=== PATIENT | male | born 1975 | race Caucasian/White ===

== ENCOUNTER 2017-10-04 01:39 | Emergency (ER) | payer SELFPAY ==
[2017-10-04 01:46] VITALS: BP 139/87
[2017-10-04] MEDS ORDERED: PREDNISONE 20 MG TABLET PO ONE (02:25)
--- NOTE | 2017-10-04 02:41 | ER Document Report ---
ED Extremity Problem, Lower - General Chief Complaint: Knee Pain Stated Complaint: KNEE PAIN Time Seen by Provider: 10/04/17 02:09 Mode of Arrival: Ambulatory Information source: Patient Notes: This 42-year-old male patient comes emergency room complaining of right knee pain and swelling. He reports on 09/25/2017 that the knee swelled up quite large and was extremely painful. At that time he was driving to [place]. Over time the swelling went down mostly, but it makes a grinding noise when he bends the knee. He has never had this happen before. There is no known injury. He continues to have pain on the lateral and medial aspects of the knee and in the medial thigh going above the knee. 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 TRAVEL OUTSIDE OF THE [place] 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 Family History: Reviewed & Not Pertinent Patient has suicidal ideation: No Patient has homicidal ideation: No - Medical History Medical History: Negative Psychiatric Medical History: Reports: None Surgical Hx: Negative Review of Systems - Review of Systems Constitutional: No symptoms reported EENT: No symptoms reported Cardiovascular: No symptoms reported Respiratory: No symptoms reported Gastrointestinal: No symptoms reported Genitourinary: No symptoms reported Musculoskeletal: See HPI Skin: No symptoms reported Hematologic/Lymphatic: No symptoms reported Neurological/Psychological: No symptoms reported Physical Exam - Vital signs Vitals: Temp Pulse Resp BP Pulse Ox 97.7 F 77 16 139/87 H 98 10/04/17 01:44 10/04/17 01:44 10/04/17 01:44 10/04/17 01:44 10/04/17 01:44 Interpretation: Normal - General General appearance: Appears well, Alert In distress: None - HEENT Head: Normocephalic, Atraumatic Eyes: Normal Pupils: PERRL - Respiratory Respiratory status: No respiratory distress - Cardiovascular Rhythm: Regular - Abdominal Inspection: Normal - Back Back: Normal - Extremities General upper extremity: Normal inspection Knee: Joint effusion - The right knee has a mild joint effusion. It is not warm. The knee is very tender to palpate the anterior and lateral collateral ligament regions. There is some tenderness on the distal medial thigh leading up from the knee. Patellofemoral grind is negative for crepitance, but is tender to attempt. Flexing and extending the knee is painful and there is a barely audible grinding sound that the patient has described. - Neurological Neuro grossly intact: Yes - Psychological Associated symptoms: Normal affect, Normal mood Course - Re-evaluation Re-evalutation: 10/04/17 18:26 The patient's lab work showed a WBC of 25,400 with 83 segs. The sed rate was only 12. Uric acid level was 5.3 Due to the extreme leukocytosis with shift, decision was made to attempt to aspirate joint fluid. The medial right knee was prepped with 4 Betadine swabs, then wiped several times with alcohol pads. An 18-gauge needle attached a syringe was introduced medially under the patella , attempts at aspirating joint fluid were unsuccessful. This did cause the patient considerable pain. The case was discussed with Dr. Castillo who was similarly unable to provide a good explanation for the laboratory findings based on history and physical. He requested I have the patient come to the office today to be seen for further evaluation. The patient was provided crutches, and dispensed pain medication with instructions on how to find Dr. Castillo's office. All of this was handwritten, as the computer system was shut down prior to patient's disposition. 10/04/17 18:31 - Vital Signs Vital signs: Temp Pulse Resp BP Pulse Ox 97.7 F 77 16 139/87 H 98 10/04/17 01:44 10/04/17 01:44 10/04/17 01:44 10/04/17 01:44 10/04/17 01:44 - Laboratory Result Diagrams: 10/04/17 02:30 Laboratory results interpreted by me: 10/04/17 02:30 WBC 25.4 H Seg Neutrophils % 83.4 H Lymphocytes % 10.5 L Absolute Neutrophils 21.1 H - Diagnostic Test Radiology reviewed: Image reviewed, Reports reviewed - Mild infrapatellar swelling to the right knee. - Consults Dr. Lopez Time consulted: 04:00 Consulted provider: follow-up in office Discharge - Discharge Clinical Impression: Effusion of right knee Right knee pain Qualifiers: Chronicity: acute Qualified Code(s): M25.561 - Pain in right knee Leukocytosis Qualifiers: Leukocytosis type: unspecified Qualified Code(s): D72.829 - Elevated white blood cell count, unspecified Condition: Stable Disposition: HOME, SELF-CARE
[2017-10-04 02:45] LABS: ABSOLUTE BASOPHILS # (AUTO) 0.2 10^3/uL (0.0-0.2); ABSOLUTE EOSINOPHILS # (AUTO) 0.3 10^3/uL (0.0-0.6); ABSOLUTE LYMPHOCYTES (AUTO) 2.7 10^3/uL (0.5-4.7); ABSOLUTE MONOCYTES (AUTO) 1.1 10^3/uL (0.1-1.4); ABSOLUTE NEUT (AUTO) 21.1 10^3/uL (1.7-8.2); BASOPHILS % (AUTO) 0.6 % (0-2); EOSINOPHILS % (AUTO) 1.1 % (0-6); HEMOGLOBIN 13.5 g/dL (13.5-17.0); LYMPHOCYTES % (AUTO) 10.5 % (13-45); MEAN CORPUSCULAR HEMOGLOBIN 29.7 pg (27.0-33.4); MEAN CORPUSCULAR HGB CONC 34.6 g/dL (32.0-36.0); MEAN CORPUSCULAR VOLUME 86 fl (80-97); MONOCYTES % (AUTO) 4.4 % (3-13); PLATELET COUNT 302 10^3/uL (150-450); RED BLOOD COUNT 4.55 10^6/uL (4.35-5.55); SEGMENTED NEUTROPHILS % (AUTO) 83.4 % (42-78); TOTAL CELLS COUNTED % (AUTO) 100 %; WHITE BLOOD COUNT 25.4 10^3/uL (4.0-10.5)
--- NOTE | 2017-10-04 02:50 | RADIOLOGY REPORT (SQ) ---
EXAM DESCRIPTION: CR, right knee, four views CLINICAL HISTORY: 42 years, Male, pain with movement COMPARISON: None. NUMBER OF VIEWS: 4 LIMITATIONS: None. Findings: Mild infrapatellar swelling. Bones, joints, and soft tissues of CR, right knee, four views appear otherwise intact. IMPRESSION: Mild swelling.
[2017-10-04 03:27] LABS: ERYTHROCYTE SEDIMENTATION RATE 12 mm/hr (0-15)
[2017-10-04] MEDS ORDERED: HYDROCODONE/ACETAMINOPHEN 5-325 MG (6 TAB/ER DISP) PO PRN (04:43)
[2017-10-04] MEDS ORDERED: HYDROCODONE/ACETAMINOPHEN 5-325 MG (6 TAB/ER DISP) ONE (04:46)
== END 2017-10-04 04:54 | disposition home or self-care (01) ==
LOC: ER 01:39
DX: M25.461 Effusion, right knee (principal); M25.561 Pain in right knee; D72.829 Elevated white blood cell count, unspecified; F17.210 Nicotine dependence, cigarettes, uncomplicated
CPT/HCPCS: 99283; 36415; 84550; 85025; 85652; 73564; J7512

== ENCOUNTER → 2018-01-22 | Outpatient (CLI) | payer SELFPAY ==
[2018-01-22 13:24] LABS: ABSOLUTE BASOPHILS # (AUTO) 0.1 10^3/uL (0.0-0.2); ABSOLUTE EOSINOPHILS # (AUTO) 0.2 10^3/uL (0.0-0.6); ABSOLUTE LYMPHOCYTES (AUTO) 2.3 10^3/uL (0.5-4.7); ABSOLUTE MONOCYTES (AUTO) 0.7 10^3/uL (0.1-1.4); ABSOLUTE NEUT (AUTO) 10.9 10^3/uL (1.7-8.2); BASOPHILS % (AUTO) 0.8 % (0-2); EOSINOPHILS % (AUTO) 1.1 % (0-6); HEMATOCRIT 43.8 % (37.9-51.0); LYMPHOCYTES % (AUTO) 16.4 % (13-45); MEAN CORPUSCULAR HEMOGLOBIN 29.5 pg (27.0-33.4); MEAN CORPUSCULAR HGB CONC 34.3 g/dL (32.0-36.0); MEAN CORPUSCULAR VOLUME 86 fl (80-97); MONOCYTES % (AUTO) 4.9 % (3-13); PLATELET COUNT 313 10^3/uL (150-450); RED BLOOD COUNT 5.09 10^6/uL (4.35-5.55); RED CELL DISTRIBUTION WIDTH 14.3 % (11.5-14.0); SEGMENTED NEUTROPHILS % (AUTO) 76.8 % (42-78); TOTAL CELLS COUNTED % (AUTO) 100 %; WHITE BLOOD COUNT 14.2 10^3/uL (4.0-10.5)
[2018-01-22 13:48] LABS: ALANINE AMINOTRANSFERASE 22 U/L (21-72); ALBUMIN 4.5 g/dL (3.5-5.0); ALKALINE PHOSPHATASE 71 U/L (38-126); ANION GAP 12 (5-19); ASPARTATE AMINO TRANSFERASE 23 U/L (17-59); BILIRUBIN,DIRECT 0.3 mg/dL (0.0-0.4); BILIRUBIN,TOTAL 0.6 mg/dL (0.2-1.3); BLOOD UREA NITROGEN 5 mg/dL (7-20); C-REACTIVE PROTEIN 5.8 mg/L (<10.0); CALCIUM 9.9 mg/dL (8.4-10.2); CARBON DIOXIDE 27 mmol/L (22-30); CHLORIDE 101 mmol/L (98-107); GLUCOSE 98 mg/dL (75-110); POTASSIUM 4.4 mmol/L (3.6-5.0); SODIUM 139.9 mmol/L (137-145); TOTAL PROTEIN 7.7 g/dL (6.3-8.2)
[2018-01-22 15:16] LABS: ERYTHROCYTE SEDIMENTATION RATE 6 mm/hr (0-15)
== END ==
LOC: OD 12:05
PROVIDERS: ATTEND Orthopaedic Surgery
DX: M25.561 Pain in right knee (principal)
CPT/HCPCS: 36415; 80053; 85025; 85652; 86140